=== PATIENT | female | born 1990 | race American Indian/Alaskan Native ===

== ENCOUNTER 2018-11-21 17:25 | Emergency (ER) | payer BC, OTHER ==
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
[2018-11-21] MEDS ORDERED: NORCO 5/325 PO ONE (19:50)
[2018-11-21] MEDS ORDERED: IBUPROFEN PO ONE (19:50)
[2018-11-21] MEDS ORDERED: FLEXERIL PO ONE (19:50)
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
[2018-11-22 14:27] VITALS: BP 125/57
== END 2018-11-21 21:42 | disposition home or self-care (01) ==
LOC: ED 17:25
DX: S16.1XXA Strain of muscle, fascia and tendon at neck level, initial encounter (principal); M25.512 Pain in left shoulder; M54.6 Pain in thoracic spine; V49.59XA Passenger injured in collision with other motor vehicles in traffic accident, initial encounter; Y93.89 Activity, other specified; Y92.488 Other paved roadways as the place of occurrence of the external cause; Y99.8 Other external cause status
CPT/HCPCS: 72072; 99283

== ENCOUNTER 2022-03-14 09:38 | Day surgery (SDC) | payer BC ==
--- NOTE | 2022-03-14 08:29 | History and Physical Report ---
History of Present Illness Date of examination: 03/14/22 Chief complaint: retained malpositioned IUD Medications and Allergies Allergies Allergy/AdvReac Type Severity Reaction Status Date / Time No Known Allergies Allergy Unverified 03/11/22 15:39 Home Medications Medication Instructions Recorded Confirmed Last Taken Type No Known Home Medications [No 03/04/22 03/11/22 Unknown History Reported Home Medications] Active Meds: Active Medications Lactated Ringer's (Lactated Ringers) 1,000 mls @ 100 mls/hr IV DIRECT ЮЛИЯ Stop: 03/14/22 23:59 Midazolam HCl (Midazolam 2 Mg/2 Ml Inj) 2 mg IV PREOP NR Stop: 03/14/22 23:59 - Physical Exam Breasts: Positive: deferred Cardiovascular: Regular rate, Normal S1 Lungs: Positive: Clear to auscultation, Normal air movement Abdomen: Positive: normal appearance, soft, normal bowel sounds Genitourinary (Female): Positive: normal external genitalia, normal perenium Vagina: Positive: normal moisture Uterus: Positive: normal size, enlarged (uterine fibroid) Anus/Rectum: Positive: normal perianal skin Extremities: Positive: normal Deep Tendon Reflex Grade: Normal +2 Results All other labs normal. 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
[~2022-03-14 09:38] MED LIST: LACTATED RINGERS 1,000 ML IV SCH; MIDAZOLAM 2 MG/2 ML INJ IV NR
--- NOTE | 2022-03-14 10:05 | Operative Report ---
Operative Report Operative Report: Preoperative diagnosis: Retained IUD,submucosal fibroid Postoperative diagnosis: Same Procedure: operative hysteroscopy with removal of retained MIRENA IUD Surgeon: Dr. Marcia Mims Anesthesia: GETA EBL: Minimal Urine output: 100ml clear urine IV fluids:250ml Complications: none Finding: Procedure: Patient was counseled in preop holding area about risks benefits possible complications as well as alternatives to the procedure. Informed consent was obtained. She was taken to the OR where she received excellent general endotracheal anesthesia. She was then placed in a dorsal lithotomy position. Patient was then prepped and draped in a sterile fashion. A timeout was verified. Patient was straight cathed with a red rubber catheter, with 100ml clear urine obtained. A speculum was placed in the vaginal vault, the cervix was noted to be pink with no lesions. A single-tooth tenaculum was placed on the anterior lip of the cervix and the endometrium sounded to 8cm. The cervix was then dilated to allow for the passage of the hysteroscope. The uterus was hydrodistended, the endometrium was noted to be obscured by a large submucosal fibroid. The MIRENA was noted against the posterior ascpect of the uterine wall, grasped with a blunt grasper and removed without complications and sent to pathology. At the completion of the procedure the hysteroscope, tenaculum, and speculum were removed from the uterus cervix and vagina respectively. EBL minimal. Patient extubated and taken to the PACU in stable condition. Patient offered no family contact for postop notification. All sponge needle instrument counts correct x2. Patient will follow-up in the outpatient setting in 1 week. Sridhar WOODS
--- NOTE | 2022-03-14 10:29 | Anesthesia Consultation ---
Anesthesia Consult and Med Hx Date of service: 03/14/22 - Airway Anesthetic Teeth Evaluation: Good ROM Head & Neck: Adequate Mental/Hyoid Distance: Adequate Mallampati Class: Class III Intubation Access Assessment: Possibly Difficult - Pre-Operative Health Status ASA Pre-Surgery Classification: ASA3 Proposed Anesthetic Plan: General - Pulmonary Hx Asthma: Yes (no recent symptoms; last INH >10yrs ago) Hx Respiratory Symptoms: No - Cardiovascular System Hx Hypertension: No - Central Nervous System CVA: No Hx Back Pain: Yes - Endocrine Hx Renal Disease: No Hx Liver Disease: No Hx Insulin Dependent Diabetes: No Hx Non-Insulin Dependent Diabetes: No Hx Thyroid Disease: No - Other Systems Hx Obesity: Yes (BMI 49) - Additional Comments Anesthesia Medical History Comments: No prior GA. No FHx anesthetic complications.
--- NOTE | 2022-03-14 10:29 | Anesthesia Day of Surgery ---
Anesthesia Day of Surgery - Day of Surgery Patient Examined: Yes Patient H&P Reviewed: Yes Patient is NPO: Yes
[2022-03-14] MEDS ORDERED: fentaNYL 100 MCG/2 ML INJ ONE (10:48)
[2022-03-14] MEDS ORDERED: LIDOCAINE MPF (2%) 20 MG/1 ML VIAL 5 ML ONE (10:48)
[2022-03-14] MEDS ORDERED: propofoL 200 MG/20 ML VIAL IV ONE (10:48)
[2022-03-14] MEDS ORDERED: HYDROmorphone 0.5 MG/0.5 ML INJ IV PRN (11:00)
[2022-03-14] MEDS ORDERED: HYDROcodone/ACETAMINOPHEN 5-325 MG TAB PO PRN (11:00)
[2022-03-14] MEDS ORDERED: KETOROLAC 30 MG/1 ML INJ IV PRN (11:00)
[2022-03-14] MEDS ORDERED: ONDANSETRON 4 MG/2 ML INJ IV PRN (11:00)
[2022-03-14] MEDS ORDERED: SODIUM CHLORIDE 0.9% IRRIG SOLN 2000 ML IR ONE (11:20)
[2022-03-14] MEDS ORDERED: ONDANSETRON 4 MG/2 ML INJ ONE (11:23)
[2022-03-14] MEDS ORDERED: KETOROLAC 30 MG/1 ML INJ ONE (11:23)
[2022-03-14] MEDS ORDERED: dexAMETHasone 20 MG/5 ML VIAL ONE (11:23)
[2022-03-14 12:42] VITALS: BP 131/76
--- NOTE | 2022-03-14 13:45 | Post Anesthesia Evaluation ---
- Post Anesthesia Evaluation Patient Participated: Yes Airway Patent: Yes Stable Respiratory Function: Yes Nausea/Vomiting: No Temp > 96.8F: Yes Pain Manageable: Yes Adequeate Hydration: Yes Anesthesia Complications: No
== END 2022-03-14 13:10 | disposition home or self-care (01) ==
LOC: OR 09:38
PROVIDERS: ATTEND Obstetrics & Gynecology
DX: Z30.432 Encounter for removal of intrauterine contraceptive device (principal); E66.9 Obesity, unspecified; J45.909 Unspecified asthma, uncomplicated; Z98.891 History of uterine scar from previous surgery; Z72.89 Other problems related to lifestyle; Z98.890 Other specified postprocedural states; Z68.42 Body mass index [BMI] 45.0-49.9, adult
CPT/HCPCS: 58562; 81025; 88302; J1100; J1885; J2405; J2704; J3010